=== PATIENT | male | born 1955 | race American Indian/Alaskan Native ===

== ENCOUNTER 2020-11-18 13:35 | Observation (INO) | payer MEDICARE, OTHER ==
--- NOTE | 2020-11-18 14:11 | Event Note ---
ED Screening Note Date of service: 11/18/20 Time: 14:09 ED Screening Note: 65-year-old male with a past medical history of coronary artery disease status post stent placement, COPD, hyperlipidemia, and hypertension presents to the ER today complaining of rectal bleeding and shortness of breath. Symptom onset was this morning. He describes bright red but also maroon-colored stool this morning. He states that he has had diarrhea but this has resolved 2 days ago. Reports decreased appetite and nausea. He denies vomiting. he denies any abdominal pain, or Chest pain. He is on Plavix and baby aspirin This initial assessment/diagnostic orders/clinical plan/treatment(s) is/are subject to change based on patients health status, clinical progression and re- assessment by fellow clinical providers in the ED. Further treatment and workup at subsequent clinical providers discretion. Patient/guardian urged not to elope from the ED as their condition may be serious if not clinically assessed and managed. Initial orders include: CBC, CMP, EKG, troponin, chest x-ray, Hemoccult
[2020-11-18 14:40] LABS: Eosinophils # (Auto) 0.1 K/mm3 (0.0-0.4); Eosinophils % (Auto) 0.8 % (0.0-4.3); Hematocrit 50.7 % (35.5-45.6); Hemoglobin 17.1 gm/dl (11.8-15.2); Lymphocytes # (Auto) 2.8 K/mm3 (1.2-5.4); Lymphocytes % (Auto) 43.7 % (13.4-35.0); Mean Corpuscular HGB Conc 34 % (32-34); Mean Corpuscular Volume 87 fl (84-94); Monocytes # (Auto) 0.6 K/mm3 (0.0-0.8); Monocytes % (Auto) 9.4 % (0.0-7.3); Platelet Count 235 K/mm3 (140-440); Red Blood Count 5.82 M/mm3 (3.65-5.03); Red Cell Distribution Width 16.7 % (13.2-15.2)
[2020-11-18 14:48] LABS: Alanine Aminotransferase 8 units/L (7-56); BUN/Creatinine Ratio 12; Blood Urea Nitrogen 16 mg/dL (9-20); Calcium 9.2 mg/dL (8.4-10.2); Hemolysis Index 9
--- NOTE | 2020-11-18 15:02 | XRay Report ---
CHEST PA AND LATERAL VIEWS INDICATION: SOB. COMPARISON: 08/15/2013 FINDINGS: Support devices: None Heart: Normal. Thoracic aorta is tortuous but appears normal in caliber. Lungs/Pleura: No acute pulmonary or pleural findings. IMPRESSION: 1. No acute disease. Signer Name: Don Gilmore MD Signed: 11/18/2020 2:58 PM Workstation Name: [id number]
--- NOTE | 2020-11-18 17:43 | Cat Scan Report ---
CTA ABDOMEN AND PELVIS WITH IV CONTRAST INDICATION / CLINICAL INFORMATION: gi bleed, hx of aorta repair. TECHNIQUE: Axial CT images were obtained through the abdomen and pelvis before and after after injection of 100 cc Omnipaque 350 IV contrast. 3 plane MIP / 3D reconstructions were produced. All CT scans at this [facility] are performed using CT dose reduction for ALARA by means of automated exposure control. Any pe rcent stenosis measurements are based on criteria similar to NASCET. COMPARISON: None available. FINDINGS: Aorta: There are postsurgical changes from repair of the lower abdominal aorta and proximal iliac art eries. No recurrent aneurysm identified. No evidence of vascular leakage. Renal arteries: Mild atherosclerotic plaque bilaterally without significant stenosis. Celiac artery: No significant abnormality. Superior Mesenteric Artery: No significant abnormality. Inferior mesenteric artery: No significant abnormality. Right Iliac Arteries: There is diffuse atherosclerotic plaque without significant stenosis. There is an aneurysm of the right internal iliac artery measuring 2.4 cm.. Left Iliac Arteries: There is diffuse atherosclerotic plaque without significant stenosis. There is a n aneurysm of the left common iliac artery measuring 2.0 cm.. Additional Findings: There is no appreciable active GI bleeding. There are multiple bilateral simple renal cysts. There is no bowel obstruction, free air, or pneumatosis. Skeletal Structures: No significant abnormality. IMPRESSION: 1. No appreciable active GI bleeding by CT. 2. Previous repair of the lower abdominal aorta without recurrent aneurysm or other acute aortic abno rmality. 3. Bilateral internal iliac artery aneurysms are present. Signer Name: Flavio Bello MD Signed: 11/18/2020 5:38 PM Workstation Name: [id number]
--- NOTE | 2020-11-18 17:53 | Emergency Department Report ---
ED GI Bleed HPI - General Chief complaint: GI Bleed Stated complaint: BLOOD IN STOOL Time Seen by Provider: 11/18/20 14:09 Source: patient Mode of arrival: Ambulatory Limitations: No Limitations - History of Present Illness Initial comments: 65-year-old male with a past medical history of throat cancer treated surgically in 1973 currently on remission, abdominal aortic aneurysm repair approximately 3 years ago at the [facility], CAD with stent placement, COPD, hypertension, kidney stones presents to the hospital complaining of dark maroon-colored stools since this a.m. Patient has had 2 maroon-colored bowel movements today. He currently takes aspirin and Plavix for CAD. He denies chest pain, abdominal pain, fever, history of previous GI bleed, nausea, or vomiting. Patient last had a colonoscopy 2 to 3 years ago and was supposed to reschedule due to unclear reason however, states they never called him for an appointment. Severity scale (0 -10): 3 - Related Data Home Medications Medication Instructions Recorded Confirmed Last Taken Aspirin [Adult Low Dose Aspirin EC] 81 mg PO QDAY 02/05/17 02/05/17 02/05/17 AtorvaSTATin [Lipitor] 1 tab PO QDAY 02/05/17 02/05/17 02/05/17 Budesoni/Formotero 160-4.5(Nf) 2 puff PO PRN 02/05/17 02/05/17 Unknown [Symbicort 160-4.5 (Nf)] Clopidogrel Bisulfate [Plavix] 75 mg PO QDAY 02/05/17 02/05/17 02/05/17 an ISOSORBIDE MONOnitrate [Imdur ER] 60 mg PO QAM 02/05/17 02/05/17 02/05/17 Metoprolol [Lopressor TAB] 25 mg PO BID 02/05/17 02/05/17 02/05/17 amLODIPine 5 mg PO QDAY 02/05/17 02/05/17 02/05/17 Previous Rx's Medication Instructions Recorded Last Taken Type Furosemide [Lasix TAB] 40 mg PO Q48H PRN #15 tablet 02/06/17 Unknown Rx Allergies Allergy/AdvReac Type Severity Reaction Status Date / Time No Known Allergies Allergy Unverified 02/05/17 15:35 ED Review of Systems ROS: Stated complaint: BLOOD IN STOOL Other details as noted in HPI Comment: All other systems reviewed and negative ED Past Medical Hx - Past Medical History Previous Medical History?: Yes Hx Hypertension: Yes Hx CVA: No Hx Heart Attack/AMI: Yes (CAD with stent placement) Hx Congestive Heart Failure: No Hx Diabetes: No Hx Deep Vein Thrombosis: No Hx Pulmonary Embolism: No Hx GERD: No Hx Liver Disease: No Hx of Cancer: Yes (Throat cancer treated surgically in 1973) Hx Sickle Cell Disease: No Hx Arthritis: No Hx Headaches / Migraines: No Hx Seizures: No Hx Kidney Stones: Yes Hx Psychiatric Treatment: No Hx Asthma: No Hx COPD: Yes Hx Tuberculosis: No Hx Dementia: No Hx HIV: No - Surgical History Past Surgical History?: Yes Hx Coronary Stent: Yes Hx Open Heart Surgery: No Hx Pacemaker: No Hx Internal Defibrillator: No Hx Cholecystectomy: No Hx Appendectomy: No Hx Breast Surgery: No Additional Surgical History: Abdominal aortic aneurysm repair approximately 2018 at the [facility] - Social History Smoking Status: Former Smoker Substance Use Type: None - Medications Home Medications: Home Medications Medication Instructions Recorded Confirmed Last Taken Type Aspirin [Adult Low Dose Aspirin EC] 81 mg PO QDAY 02/05/17 02/05/17 02/05/17 H istory AtorvaSTATin [Lipitor] 1 tab PO QDAY 02/05/17 02/05/17 02/05/17 History Budesoni/Formotero 160-4.5(Nf) 2 puff PO PRN 02/05/17 02/05/17 Unknown History [Symbicort 160-4.5 (Nf)] Clopidogrel Bisulfate [Plavix] 75 mg PO QDAY 02/05/17 02/05/17 02/05/17 History an ISOSORBIDE MONOnitrate [Imdur ER] 60 mg PO QAM 02/05/17 02/05/17 02/05/17 History Metoprolol [Lopressor TAB] 25 mg PO BID 02/05/17 02/05/17 02/05/17 History amLODIPine 5 mg PO QDAY 02/05/17 02/05/17 02/05/17 History Furosemide [Lasix TAB] 40 mg PO Q48H PRN #15 tablet 02/06/17 Unknown Rx ED Physical Exam - General Limitations: No Limitations - Other Other exam information: General: No acute distress Head: Atraumatic Eyes: normal appearance ENT: Moist mucous membranes Neck: Normal appearance, no midline tenderness Chest: Clear to auscultation bilaterally CV: Regular rate and rhythm Abdomen: Soft, normal bowel sounds, midline vertical surgical scar, nontender, nondistended, no rebound or guarding Rectal: Brown bloody stool guaiac positive Back: Normal inspection Extremity: Normal inspection, full range of motion Neuro: Alert O x 3, no facial asymmetry, speech clear, no gross motor sensory deficit Psych: Appropriate behavior Skin: No rash ED Course Vital Signs 11/18/20 11/18/20 11/18/20 14:08 16:55 16:56 Temperature 99.0 F Pulse Rate 57 L 63 Respiratory 20 14 14 Rate Blood Pressure 134/107 Blood Pressure 159/97 [Left] O2 Sat by Pulse 100 99 99 Oximetry - Consultations Consultation #1: 11/18/20 18:[address] Marcos [employer] vice president consulting services recommends admission for observation, repeat H&H, possible colonoscopy ED Medical Decision Making - Lab Data Result diagrams: 11/18/20 14:15 11/18/20 14:15 Lab Results 11/18/20 11/18/20 11/18/20 Range/Units 14:15 14:15 14:15 WBC 6.3 (4.5-11.0) K/mm3 RBC 5.82 H (3.65-5.03) M/mm3 Hgb 17.1 H (11.8-15.2) gm/dl Hct 50.7 H (35.5-45.6) % MCV 87 (84-94) fl MCH 29 (28-32) pg MCHC 34 (32-34) % RDW 16.7 H (13.2-15.2) % Plt Count 235 (140-440) K/mm3 Lymph % (Auto) 43.7 H (13.4-35.0) % [place] % (Auto) 9.4 H (0.0-7.3) % Eos % (Auto) 0.8 (0.0-4.3) % Baso % (Auto) [employer]led[employer] Operator Lymph # (Auto) 2.8 (1.2-5.4) K/mm3 [place] # (Auto) 0.6 (0.0-0.8) K/mm3 Eos # (Auto) 0.1 (0.0-0.4) K/mm3 Baso # (Auto) 0.0 (0.0-0.1) K/mm3 Seg Neutrophils % 45.6 (40.0-70.0) % Seg Neutrophils # 2.9 (1.8-7.7) K/mm3 Sodium 141 (137-145) mmol/L Potassium 4.0 (3.6-5.0) mmol/L Chloride 105.9 (98-107) mmol/L Carbon Dioxide 27 (22-30) mmol/L Anion Gap 12 mmol/L BUN 16 (9-20) mg/dL Creatinine 1.3 (0.8-1.3) mg/dL Estimated GFR > 60 ml/min BUN/Creatinine Ratio 12 % Glucose 119 H (75-100) mg/dL Calcium 9.2 (8.4-10.2) mg/dL Total Bilirubin 0.50 (0.1-1.2) mg/dL AST 12 (5-40) units/L ALT 8 (7-56) units/L Alkaline Phosphatase 92 (35-129) units/L Troponin T < 0.010 (0.00-0.029) ng/mL Total Protein 7.1 (6.3-8.2) g/dL Albumin 4.0 (3.9-5) g/dL Albumin/Globulin Ratio 1.3 % Lipase 66 H (13-60) units/L - EKG Data -: EKG Interpreted by Me (pvc'S) EKG shows normal: sinus rhythm, ST-T waves Rate: bradycardia (58) - Radiology Data Radiology results: report reviewed CTA ABDOMEN AND PELVIS WITH IV CONTRAST INDICATION / CLINICAL INFORMATION: gi bleed, hx of aorta repair. TECHNIQUE: Axial CT images were obtained through the abdomen and pelvis before and after a fter injection of 100 cc Omnipaque 350 IV contrast. 3 plane MIP / 3D reconstructions were produced. All CT scans at this location are performed using CT dose reduction for ALARA by means of automated exposure control. Any percent stenosis measurements are based on criteria similar to NASCET. COMPARISON: None available. FINDINGS: Aorta: There are postsurgical changes from repair of the lower abdominal aorta and proximal iliac arteries. No recurrent aneurysm identified. No evidence of vascular leakage. Renal arteries: Mild atherosclerotic plaque bilaterally without significant st enosis. Celiac artery: No significant abnormality. Superior Mesenteric Artery: No significant abnormality. Inferior mesenteric artery: No significant abnormality. Right Iliac Arteries: There is diffuse atherosclerotic plaque without significant stenosis. There is an aneurysm of the right internal iliac artery measuring 2.4 cm.. Left Iliac Arteries: There is diffuse atherosclerotic plaque without significant stenosis. There is an aneurysm of the left common iliac artery measuring 2.0 cm.. Additional Findings: There is no appreciable active GI bleeding. There are multiple bilateral simple renal cysts. There is no bowel obstruction, free air, or pneumatosis. Skeletal Structures: No significant abnormality. IMPRESSION: 1. No appreciable active GI bleeding by CT. 2. Previous repair of the lower abdominal aorta without recurrent aneurysm or other acute aortic abnormality. 3. Bilateral internal iliac artery aneurysms are present. CHEST PA AND LATERAL VIEWS INDICATION: SOB. COMPARISON: 08/15/2013 FINDINGS: Support devices: None Heart: Normal. Thoracic aorta is tortuous but appears normal in caliber. Lungs/Pleura: No acute pulmonary or pleural findings. IMPRESSION: 1. No acute disease. - Medical Decision Making 59 YO male presents to the hospital with new onset rectal bleeding times 1 day x 2 episodes. Guaiac positive bloody stools on rectal examination. Patient has a normal H&H without signs of cardial pulmonary instability in the ED. CT angiogram does not show any active bleeding or acute aortic aneurysm findings status post repair. Case discussed with on-call GI physician who recommends admission for observation and trending of H&H with possibility of colonoscopy as needed. Critical Care Time: No Critical care attestation.: If time is entered above; I have spent that time in minutes in the direct care of this critically ill patient, excluding procedure time. ED Disposition Clinical Impression: GI bleed, Antiplatelet or antithrombotic long-term use, Stented coronary artery, History of abdominal aortic aneurysm (AAA) repair Disposition: OP ADMIT IP TO THIS HOSP Is pt being admited?: Yes Condition: Stable Referrals: [facility] [Primary Care Provider] - 3-5 Days Time of Disposition: 18:02 (Dr FRANKEL/[facility])
[2020-11-18] MEDS ORDERED: ALBUTEROL 2.5 MG/3 ML NEBU IH PRN (18:02)
[2020-11-18] MEDS ORDERED: ONDANSETRON 4 MG/2 ML INJ IV PRN (18:02)
[2020-11-18] MEDS ORDERED: ACETAMINOPHEN 325 MG TAB PO PRN (18:02)
--- NOTE | 2020-11-18 18:02 | History and Physical Report ---
History of Present Illness Chief complaint: I have blood in my stool History of present illness: 65 YO Male with [place], HTN, HLD, CAD S/P Stent Placement on DAPT, COPD, Nephrolithiasis, Oralpharyngeal Cancer, AAA S/P Aneurysm Repair presents to ED for evaluation. Pt reports " I have blood in my stool". Pt states that he has experienced abdominal discomfort as well as two today dark stools. Pt transported to [facility] via private vehicle. Patient seen and evaluated in the emergency department. All lab and imaging studies reviewed. Patient found to be Hemoccult positive and found to have clinical symptoms consistent with GI bleed. Patient hemoglobin stable at this time of admission. No transfusion indicated at this time. Patient placed in observation status and admitted to medical floor. GI team consulted in ED. Patient initiated on IV PPI therapy. Patient denies fever, chills, chest pain, palpitation, productive cough, ingestion of food/water from new or different sources, recent ill contacts, or known exposure to COVID-19. Prior admission on 02/05/2017 reviewed. All medication listed at time of admiss ion has been reconciled. Advanced care planning conducted in ED. Past History Past Medical History: acute [place], CAD, cancer, COPD, hypertension, hyperlipidemia, other (See HPI) Past Surgical History: abd. aortic aneurysm repair, Other (Cardiac stent placement) Social history: single. denies: smoking, alcohol abuse, prescription drug abuse Family history: diabetes, hypertension Medications and Allergies Allergies Allergy/AdvReac Type Severity Reaction Status Date / Time No Known Allergies Allergy Unverified 02/05/17 15:35 Home Medications Medication Instructions Recorded Confirmed Last Taken Type Aspirin [Adult Low Dose Aspirin EC] 81 mg PO QDAY 02/05/17 02/05/17 02/05/17 History AtorvaSTATin [Lipitor] 1 tab PO QDAY 02/05/17 02/05/17 02/05/17 History Budesoni/Formotero 160-4.5(Nf) 2 puff PO PRN 02/05/17 02/05/17 Unknown History [Symbicort 160-4.5 (Nf)] Clopidogrel Bisulfate [Plavix] 75 mg PO QDAY 02/05/17 02/05/17 02/05/17 History an ISOSORBIDE MONOnitrate [Imdur ER] 60 mg PO QAM 05/09/1202/05/17 02/05/17 History Metoprolol [Lopressor TAB] 25 mg PO BID 02/05/17 02/05/17 02/05/17 History amLODIPine 5 mg PO QDAY 02/05/17 02/05/17 02/05/17 History Furosemide [Lasix TAB] 40 mg PO Q48H PRN #15 tablet 02/06/17 Unknown Rx Review of Systems Constitutional: no weight loss, no fever, no chills, no sweats, no weakness, no malaise Ears, nose, mouth and throat: no ear pain, no ear discharge, no tinnitis, no decreased hearing, no nasal congestion, no nasal discharge Cardiovascular: no chest pain, no orthopnea, no rapid/irregular heart beat, no edema, no lightheadedness Respiratory: no cough, no excessive sputum, no hemoptysis, no dyspnea on exertion Gastrointestinal: BRBPR, no abdominal pain, no nausea, no vomiting, no loss of appetite Genitourinary Male: no hematuria, no flank pain, no discharge, no urinary frequency, no urinary hesitancy Rectal: no pain, no incontinence, no bleeding Musculoskeletal: no neck stiffness, no neck pain, no shooting arm pain, no arm numbness/tingling, no low back pain Integumentary: no rash, no pruritis, no redness, no sores, no wounds Neurological: no head injury, no transient paralysis, no paralysis, no weakness, no parathesias, no numbness, no tingling Psychiatric: no anxiety, no memory loss, no sleep disturbances, no insomnia, no hypersomnia, no change in appetite, no suicidal ideation, no disorientation Endocrine: no cold intolerance, no polyuria, no nocturia, no excessive sweating, no flushing Hematologic/Lymphatic: no easy bruising, no easy bleeding Allergic/Immunologic: no urticaria, no allergic rhinitis, no wheezing Exam - Constitutional Vitals: Temp Pulse Resp BP Pulse Ox 99.0 F 63 14 159/97 99 11/18/20 14:08 11/18/20 16:55 11/18/20 16:56 11/18/20 16:55 11/18/20 16:56 General appearance: Present: mild distress - EENT Eyes: Present: PERRL ENT: hearing intact, clear oral mucosa - Neck Neck: Present: supple, normal ROM - Respiratory Respiratory effort: normal Respiratory: bilateral: CTA - Cardiovascular Heart Sounds: Present: S1 & S2. Absent: rub, click - Extremities Extremities: pulses symmetrical, No edema Peripheral Pulses: within normal limits - Abdominal General gastrointestinal: Present: soft, non-tender, non-distended, normal bowel sounds Male genitourinary: Present: normal - Integumentary Integumentary: Present: clear, warm, dry - Musculoskeletal Musculoskeletal: gait normal, strength equal bilaterally - Psychiatric Psychiatric: appropriate mood/affect, intact judgment & insight - Neurologic Neurologic: CNII-XII intact, moves all extremities HEART Score - HEART Score Troponin: Troponin T < 0.010 ng/mL (0.00-0.029) 11/18/20 14:15 Results - Labs CBC & Chem 7: 11/18/20 14:15 11/18/20 14:15 Labs: Abnormal lab results 11/18/20 11/18/20 11/18/20 Range/Units 14:15 14:15 14:15 RBC 5.82 H (3.65-5.03) M/mm3 Hgb 17.1 H (11.8-15.2) gm/dl Hct 50.7 H (35.5-45.6) % RDW 16.7 H (13.2-15.2) % Lymph % (Auto) 43.7 H (13.4-35.0) % [place] % (Auto) 9.4 H (0.0-7.3) % Glucose 119 H (75-100) mg/dL Lipase 66 H (13-60) units/L Assessment and Plan - Patient Problems (1) GI bleed Current Visit: Yes Status: Acute Plan to address problem: CBC, IV PPI therapy, GI team consulted in ED. Further care and evaluation as per GI team. (2) Hypertension Current Visit: Yes Status: Acute Qualifiers: Hypertension type: essential hypertension Qualified Code(s): I10 - Essential (primary) hypertension Plan to address problem: Monitor blood pressure every shift, continue medical management. (3) Hyperlipidemia Current Visit: Yes Status: Acute Qualifiers: Hyperlipidemia type: mixed hyperlipidemia Qualified Code(s): E78.2 - Mixed hyperlipidemia Plan to address problem: Lipid panel, statin therapy, supportive care. Low-cholesterol diet. (4) History of abdominal aortic aneurysm (AAA) repair Current Visit: Yes Status: Acute Plan to address problem: Supportive care, continue medical management. (5) CAD (coronary artery disease) Current Visit: No Status: Acute Qualifiers: Associated angina: without angina Plan to address problem: Antiplatelet therapy, supportive care, continue medical management, risk factor reduction. (6) DVT prophylaxis Current Visit: Yes Status: Acute Plan to address problem: SCD to bilateral lower extremities while in bed, patient is ambulatory. (7) Advance care planning Current Visit: Yes Status: Acute Plan to address problem: Disease education conducted, care plan discussed, prognosis discussed, diagnosis discussed, patient knowledges understanding and agreement with care plan, +30 mi nutes.
[2020-11-18] MEDS ORDERED: FUROSEMIDE 40 MG TAB PO PRN (18:03)
[2020-11-18] MEDS ORDERED: NON-FORMULARY EACH (Budesoni/Formotero 160-4.5(Nf) 10.2 GM Inha) PO SCH (18:15)
[2020-11-18] MEDS: ARFORMOTEROL 15 MCG/2 ML NEBU IH SCH (22:07)
[2020-11-18] MEDS: BUDESONIDE 0.5 MG/2 ML NEBU IH SCH (22:08)
[2020-11-18] MEDS: PANTOPRAZOLE 40 MG INJ IV SCH (22:49)
[2020-11-18] MEDS: METOPROLOL TARTRATE 25 MG TAB PO SCH (22:49)
[2020-11-19 07:30] LABS: Basophils % (Auto) 0.3 % (0.0-1.8); Eosinophils # (Auto) 0.1 K/mm3 (0.0-0.4); Eosinophils % (Auto) 1.1 % (0.0-4.3); Hematocrit 48.2 % (35.5-45.6); Hemoglobin 16.4 gm/dl (11.8-15.2); Lymphocytes # (Auto) 2.4 K/mm3 (1.2-5.4); Lymphocytes % (Auto) 38.3 % (13.4-35.0); Mean Corpuscular HGB Conc 34 % (32-34); Mean Corpuscular Volume 87 fl (84-94); Monocytes # (Auto) 0.6 K/mm3 (0.0-0.8); Monocytes % (Auto) 10.1 % (0.0-7.3); Platelet Count 206 K/mm3 (140-440); Red Blood Count 5.52 M/mm3 (3.65-5.03); Red Cell Distribution Width 16.3 % (13.2-15.2)
[2020-11-19 08:17] LABS: BUN/Creatinine Ratio 11; Blood Urea Nitrogen 12 mg/dL (9-20); Hemolysis Index 4
--- NOTE | 2020-11-19 09:08 | Progress Note ---
Assessment and Plan Assessment and plan: (1) GI bleed Current Visit: Yes Status: Acute Plan to address problem: CBC, IV PPI therapy, GI team consulted in ED. Further care and evaluation as per GI team. (2) Hypertension Current Visit: Yes Status: Acute Qualifiers: Hypertension type: essential hypertension Qualified Code(s): I10 - Essential (primary) hypertension Plan to address problem: Monitor blood pressure every shift, continue medical management. (3) Hyperlipidemia Current Visit: Yes Status: Acute Qualifiers: Hyperlipidemia type: mixed hyperlipidemia Qualified Code(s): E78.2 - Mixed hyperlipidemia Plan to address problem: Lipid panel, statin therapy, supportive care. Low-cholesterol diet. (4) History of abdominal aortic aneurysm (AAA) repair Current Visit: Yes Status: Acute Plan to address problem: Supportive care, continue medical management. (5) CAD (coronary artery disease) Current Visit: No Status: Acute Qualifiers: Associated angina: without angina Plan to address problem: Antiplatelet therapy, supportive care, continue medical management, risk factor reduction. (6) DVT prophylaxis Current Visit: Yes Status: Acute Plan to address problem: SCD to bilateral lower extremities while in bed, patient is ambulatory. (7) Advance care planning Current Visit: Yes Status: Acute Plan to address problem: Disease education conducted, care plan discussed, prognosis discussed, diagnosis discussed, patient knowledges understanding and agreement with care plan, +30 minutes. 11/19/2020 -Patient's H&H is stable -We will follow GI recommendation History Interval history: Patient was seen and evaluated this morning Hospitalist Physical - Physical exam Narrative exam: Not in cardiopulmonary distress. The patient appeared well nourished and normally developed. Vital signs as documented. Head exam is unremarkable. No scleral icterus . Neck is without jugular venous distension, thyromegaly, or carotid bruits. Lungs are clear to auscultation. Cardiac exam reveals regular rate and Rhythm. Abdominal exam reveals normal bowel sounds, nontender, no organomegaly. Extremities are nonedematous and both femoral and pedal pulses are normal. 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 No focal weakness. - Constitutional Vitals: Temp Pulse Resp BP Pulse Ox 98.5 F 55 L 14 142/96 95 11/19/20 03:07 11/19/20 03:07 11/19/20 03:07 11/19/20 03:07 11/19/20 03:07 General appearance: Present: mild distress HEART Score - HEART Score Troponin: Troponin T < 0.010 ng/mL (0.00-0.029) 11/18/20 14:15 Results - Labs CBC & Chem 7: 11/19/20 07:07 11/19/20 07:07 Labs: Laboratory Last Values WBC 6.4 K/mm3 (4.5-11.0) 11/19/20 07:07 RBC 5.52 M/mm3 (3.65-5.03) H 11/19/20 07:07 Hgb 16.4 gm/dl (11.8-15.2) H 11/19/20 07:07 Hct 48.2 % (35.5-45.6) H 11/19/20 07:07 MCV 87 fl (84-94) 11/19/20 07:07 MCH 30 pg (28-32) 11/19/20 07:07 MCHC 34 % (32-34) 11/19/20 07:07 RDW 16.3 % (13.2-15.2) H 11/19/20 07:07 Plt Count 206 K/mm3 (140-440) 11/19/20 07:07 Lymph % (Auto) 38.3 % (13.4-35.0) H 11/19/20 07:07 [place] % (Auto) 10.1 % (0.0-7.3) H 11/19/20 07:07 Eos % (Auto) 1.1 % (0.0-4.3) 11/19/20 07:07 Baso % (Auto) 0.3 % (0.0-1.8) 11/19/20 07:07 Lymph # (Auto) 2.4 K/mm3 (1.2-5.4) 11/19/20 07:07 [place] # (Auto) 0.6 K/mm3 (0.0-0.8) 11/19/20 07:07 Eos # (Auto) 0.1 K/mm3 (0.0-0.4) 11/19/20 07:07 Baso # (Auto) 0.0 K/mm3 (0.0-0.1) 11/19/20 07:07 Seg Neutrophils % 50.2 % (40.0-70.0) 11/19/20 07:07 Seg Neutrophils # 3.2 K/mm3 (1.8-7.7) 11/19/20 07:07 Sodium 140 mmol/L (137-145) 11/19/20 07:07 Potassium 3.5 mmol/L (3.6-5.0) L 11/19/20 07:07 Chloride 103.8 mmol/L (98-107) 11/19/20 07:07 Carbon Dioxide 31 mmol/L (22-30) H 11/19/20 07:07 Anion Gap 9 mmol/L 11/19/20 07:07 BUN 12 mg/dL (9-20) 11/19/20 07:07 Creatinine 1.1 mg/dL (0.8-1.3) 11/19/20 07:07 Estimated GFR > 60 ml/min 11/19/20 07:07 BUN/Creatinine Ratio 11 % 11/19/20 07:07 Glucose 114 mg/dL (75-100) H 11/19/20 07:07 Calcium 9.0 mg/dL (8.4-10.2) 11/19/20 07:07 Total Bilirubin 0.50 mg/dL (0.1-1.2) 11/18/20 14:15 AST 12 units/L (5-40) 11/18/20 14:15 ALT 8 units/L (7-56) 11/18/20 14:15 Alkaline Phosphatase 92 units/L (35-129) 11/18/20 14:15 Troponin T < 0.010 ng/mL (0.00-0.029) 11/18/20 14:15 Total Protein 7.1 g/dL (6.3-8.2) 11/18/20 14:15 Albumin 4.0 g/dL (3.9-5) 11/18/20 14:15 Albumin/Globulin Ratio 1.3 % 11/18/20 14:15 Lipase 66 units/L (13-60) H 11/18/20 14:15 Microbiology: Microbiology 11/18/20 16:38 Stool Stool Occult Blood (DANIELLE) - Final Carter/IV: Voiding Method Toilet Active Medications - Current Medications Current Medications: Generic Name Dose Route Start Last Admin Trade Name Freq PRN Reason Stop Dose Admin Acetaminophen 650 mg 11/18/20 18:02 11/18/20 22:49 Acetaminophen 325 Mg Tab PO 650 mg Q4H PRN Administration Pain MILD(1-3)/Fever >100.5/NEWSOME Albuterol 2.5 mg 11/18/20 18:02 Albuterol 2.5 Mg/3 Ml Nebu IH Q4HRT PRN Shortness Of Breath Amlodipine Besylate 5 mg 11/19/20 10:00 Amlodipine 5 Mg Tab PO QDAY CARLITOS Arformoterol Tartrate 15 mcg 11/18/20 20:00 11/18/20 22:07 Arformoterol 15 Mcg/2 Ml Nebu IH 15 mcg Q12HRT CARLITOS Administration Atorvastatin Calcium 40 mg 11/18/20 22:00 11/18/20 22:49 Atorvastatin 40 Mg Tab PO 40 mg HS CARLITOS Administration Budesonide 1 mg 11/18/20 20:00 11/18/20 22:08 Budesonide 0.5 Mg/2 Ml Nebu IH 1 mg Q12HRT CARLITOS Administration Furosemide 40 mg 11/18/20 18:03 Furosemide 40 Mg Tab PO Q48H PRN weight gain or Leg swelling Isosorbide Mononitrate 60 mg 11/19/20 10:00 Isosorbide Mononitrate Er 60 Mg Tab PO QAM CARLITOS Metoprolol Tartrate 25 mg 11/18/20 22:00 11/18/20 22:49 Metoprolol Tartrate 25 Mg Tab PO 25 mg BID CARLITOS Administration Ondansetron HCl 4 mg 11/18/20 18:02 11/19/20 04:58 Ondansetron 4 Mg/2 Ml Inj IV 4 mg Q8H PRN Administration Nausea And Vomiting Pantoprazole Sodium 40 mg 11/18/20 22:00 11/18/20 22:49 Pantoprazole 40 Mg Inj IV 40 mg BID CARLITOS Administration Sodium Chloride 10 ml 11/18/20 22:00 11/18/20 22:50 Sodium Chloride 0.9% 10 Ml Flush Syringe IV 10 ml BID CARLITOS Administration Sodium Chloride 10 ml 11/18/20 18:02 Sodium Chloride 0.9% 10 Ml Flush Syringe IV PRN PRN LINE FLUSH
[2020-11-19] MEDS: BUDESONIDE 0.5 MG/2 ML NEBU IH SCH (09:33)
[2020-11-19] MEDS: ARFORMOTEROL 15 MCG/2 ML NEBU IH SCH (09:33)
[2020-11-19 09:44] VITALS: BP 134/96
[2020-11-19] MEDS: METOPROLOL TARTRATE 25 MG TAB PO SCH (09:49)
[2020-11-19] MEDS: PANTOPRAZOLE 40 MG INJ IV SCH (09:51)
[2020-11-19] MEDS ORDERED: amLODIPine 5 MG TAB PO SCH (10:00)
--- NOTE | 2020-11-19 11:30 | Gastroenterology Consultation ---
History of Present Illness - Reason for Consult Consult date: 11/19/20 hematochezia Requesting physician: TEJ BARKER - History of Present Illness The patient is a 65 yo aam who presents with hematochezia x 1 day. Patient receives his care from the [facility]. h/o "throat cancer" with prior surgery (no chemo/radiation per pt), lower aortic aneurysm repair per chart review, who presents with brbpr. had one episode with blood in the camode yesterday morning and then in the ER yesterday with wipes. Had a brown bm after admission (small amount this morning). denies abd pain, hematemesis, melena, weight loss, bowel habit changes/constipation. reports having colonoscopy 2-3 years ago at [facility] and states he was not cleaned out well enough but otherwise does not recall significant findings. H/H normal, CTA negative for active bleeding, requesting to eat. Past History Past Medical History: acute [place], CAD, cancer, COPD, hypertension, hyperlipidemia, other (See HPI) Past Surgical History: abd. aortic aneurysm repair, Other (Cardiac stent placement) Social history: single. denies: smoking, alcohol abuse, prescription drug abuse Family history: diabetes, hypertension Medications and Allergies Allergies Allergy/AdvReac Type Severity Reaction Status Date / Time No Known Allergies Allergy Unverified 02/05/17 15:35 Home Medications Medication Instructions Recorded Confirmed Last Taken Type Aspirin [Adult Low Dose Aspirin EC] 81 mg PO QDAY 02/05/17 02/05/17 02/05/17 History AtorvaSTATin [Lipitor] 1 tab PO QDAY 02/05/17 02/05/17 02/05/17 History Budesoni/Formotero 160-4.5(Nf) 2 puff PO PRN 02/05/17 02/05/17 Unknown History [Symbicort 160-4.5 (Nf)] Clopidogrel Bisulfate [Plavix] 75 mg PO QDAY 02/05/17 02/05/17 02/05/17 History an ISOSORBIDE MONOnitrate [Imdur ER] 60 mg PO QAM 02/05/17 02/05/17 02/05/17 History Metoprolol [Lopressor TAB] 25 mg PO BID 02/05/17 02/05/17 02/05/17 History amLODIPine 5 mg PO QDAY 0502/05/17 02/05/17 History Furosemide [Lasix TAB] 40 mg PO Q48H PRN #15 tablet 02/06/17 Unknown Rx Active Meds: Active Medications Acetaminophen (Acetaminophen 325 Mg Tab) 650 mg PO Q4H PRN PRN Reason: Pain MILD(1-3)/Fever >100.5/NEWSOME Last Admin: 11/18/20 22:49 Dose: 650 mg Documented by: Albuterol (Albuterol 2.5 Mg/3 Ml Nebu) 2.5 mg IH Q4HRT PRN PRN Reason: Shortness Of Breath Amlodipine Besylate (Amlodipine 5 Mg Tab) 5 mg PO QDAY [facility] Last Admin: 11/19/20 09:51 Dose: 5 mg Documented by: Arformoterol Tartrate (Arformoterol 15 Mcg/2 Ml Nebu) 15 mcg IH Q12HRT [facility] Last Admin: 11/19/20 09:33 Dose: 15 mcg Documented by: Atorvastatin Calcium (Atorvastatin 40 Mg Tab) 40 mg PO HS [facility] Last Admin: 11/18/20 22:49 Dose: 40 mg Documented by: Budesonide (Budesonide 0.5 Mg/2 Ml Nebu) 1 mg IH Q12HRT [facility] Last Admin: 11/19/20 09:33 Dose: 1 mg Documented by: Furosemide (Furosemide 40 Mg Tab) 40 mg PO Q48H PRN PRN Reason: weight gain or Leg swelling Isosorbide Mononitrate (Isosorbide Mononitrate Er 60 Mg Tab) 60 mg PO QAM [facility] Last Admin: 11/19/20 09:49 Dose: Not Given Documented by: Metoprolol Tartrate (Metoprolol Tartrate 25 Mg Tab) 25 mg PO BID [facility] Last Admin: 11/19/20 09:49 Dose: Not Given Documented by: Ondansetron HCl (Ondansetron 4 Mg/2 Ml Inj) 4 mg IV Q8H PRN PRN Reason: Nausea And Vomiting Last Admin: 11/19/20 04:58 Dose: 4 mg Documented by: Pantoprazole Sodium (Pantoprazole 40 Mg Inj) 40 mg IV BID [facility] Last Admin: 11/19/20 09:51 Dose: 40 mg Documented by: Sodium Chloride (Sodium Chloride 0.9% 10 Ml Flush Syringe) 10 ml IV BID [facility] Last Admin: 11/18/20 22:50 Dose: 10 ml Documented by: Sodium Chloride (Sodium Chloride 0.9% 10 Ml Flush Syringe) 10 ml IV PRN PRN PRN Reason: LINE FLUSH Reviewed/updated patient's home and current medications Review of Systems - Review of Systems All systems: negative (per HPI) Exam - Constitutional Vital Signs: Temp Pulse Resp BP Pulse Ox 98.0 F 56 L 18 134/96 98 11/19/20 08:53 11/19/20 09:49 11/19/20 09:35 11/19/20 08:53 11/19/20 09:35 General appearance: no acute distress - EENT Eyes: PERRL, EOM intact - Neck Neck: other (+ surgical scar) - Respiratory Respiratory effort: normal Respiratory: bilateral: CTA - Cardiovascular Rhythm: regular Heart Sounds: Present: S1 & S2 - Gastrointestinal General gastrointestinal: Present: soft, non-tender, non-distended Rectal Exam: stool brown - Integumentary Integumentary: Present: clear, warm - Neurologic Neurological: alert and oriented x3 - Psychiatric Psychiatric: appropriate mood/affect - Labs CBC & Chem 7: 11/19/20 07:07 11/19/20 07:07 Lab Results: Laboratory Results - last 24 hr 11/18/20 11/18/20 11/18/20 14:15 14:15 14:15 WBC 6.3 RBC 5.82 H Hgb 17.1 H Hct 50.7 H MCV 87 MCH 29 MCHC 34 RDW 16.7 H Plt Count 235 Lymph % (Auto) 43.7 H [place] % (Auto) 9.4 H Eos % (Auto) 0.8 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1 Baso % (Auto) 0.3 Lymph # (Auto) 2.4 [place] # (Auto) 0.6 Eos # (Auto) 0.1 Baso # (Auto) 0.0 Seg Neutrophils % 50.2 Seg Neutrophils # 3.2 Sodium 140 Potassium 3.5 L Chloride 103.8 Carbon Dioxide 31 H Anion Gap 9 BUN 12 Creatinine 1.1 Estimated GFR > 60 BUN/Creatinine Ratio 11 Glucose 114 H Calcium 9.0 Total Bilirubin AST ALT Alkaline Phosphatase Troponin T Total Protein Albumin Albumin/Globulin Ratio Lipase - Imaging CT Scan: report reviewed Assessment and Plan hematochezia - appears resolved, brown stool on rectal exam, H/H stable/remains in normal range and cta neg for bleeding. most likely outlet/anorectal source. no other gi symptoms. okay to be discharged from gi stand point, pt instructed to f/u with primary [facility] in 1-2 weeks, and return to hospital for worsening bleed or other new changes/symptoms.
--- NOTE | 2020-11-19 11:49 | Discharge Summary ---
Providers - Providers Date of Admission: 11/18/20 18:02 Date of discharge: 11/19/20 Attending physician: TEJ BARKER MD 11/18/20 18:04 Consult to Physician [CONS] Urgent Comment: Consulting Provider: RENE TREVIÑO Physician Instructions: Reason For Exam: GI BLEED Primary care physician: [facility] Hospitalization Reason for admission: GI bleed Condition: Stable Pertinent studies: CTA abdomen and pelvis negative for acute bleeding Hospital course: History of present illness: 65 YO Male with [place], HTN, HLD, CAD S/P Stent Placement on DAPT, COPD, Nephrolithiasis, Oralpharyngeal Cancer, AAA S/P Aneurysm Repair presents to ED for evaluation. Pt reports " I have blood in my stool". Pt states that he has experienced abdominal discomfort as well as two today dark stools. Pt transported to [facility] via private vehicle. Patient seen and evaluated in the emergency department. All lab and imaging studies reviewed. Patient found to be Hemoccult positive and found to have clinical symptoms consistent with GI bleed. Patient hemoglobin stable at this time of admission. No transfusion indicated at this time. Patient placed in observation status and admitted to medical floor. GI team consulted in ED. Patient initiated on IV PPI therapy. Patient denies fever, chills, chest pain, palpitation, productive cough, ingestion of food/water from new or different sources, recent ill contacts, or known exposure to COVID-19. Prior admission on 02/05/2017 reviewed. All medication listed at time of admission has been reconciled. Advanced care planning conducted in ED. Hospital course Patient was admitted to the floor and CT was done and negative for active bleeding. H&H was stable. Patient has brown bowel movement after admission. Patient does not have further GI bleed. Patient was evaluated by GI and the source is likely are no rectal and recommend no further work-up and cleared him for discharge. Patient is followed at [facility] and advised to have follow-up there. Disposition: - TO HOME OR SELFCARE Time spent for discharge: 32-minutes - Discharge Diagnoses (1) GI bleed Status: Acute (2) History of abdominal aortic aneurysm (AAA) repair Status: Acute (3) Hyperlipidemia Status: Acute Qualifiers: Hyperlipidemia type: mixed hyperlipidemia Qualified Code(s): E78.2 - Mixed hyperlipidemia (4) Hypertension Status: Acute Qualifiers: Hypertension type: essential hypertension Qualified Code(s): I10 - Essential (primary) hypertension (5) Stented coronary artery Status: Acute Core Measure Documentation - Palliative Care Palliative Care/ Comfort Measures: Not Applicable - Core Measures Any of the following diagnoses?: none Exam - Physical Exam Narrative exam: Not in cardiopulmonary distress. The patient appeared well nourished and normally developed. Vital signs as documented. Head exam is unremarkable. No scleral icterus . Neck is without jugular venous distension, thyromegaly, or carotid bruits. Lungs are clear to auscultation. Cardiac exam reveals regular rate and Rhythm. Abdominal exam reveals normal bowel sounds, nontender, no organomegaly. Extremities are nonedematous and both femoral and pedal pulses are normal. 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 No focal weakness. - Constitutional Vitals: Temp Pulse Resp BP Pulse Ox 98.0 F 56 L 18 134/96 98 11/19/20 08:53 11/19/20 09:49 11/19/20 09:35 11/19/20 08:53 11/19/20 09:35 Plan Activity: no restrictions Weight Bearing Status: Full Weight Bearing Diet: low cholesterol, low salt Follow up with: [facility] [Primary Care Provider] - 3-5 Days Prescriptions: Omeprazole 20 mg PO QAM #30 tablet.
== END 2020-11-19 13:03 | disposition home or self-care (01) ==
LOC: ED 13:35 → 4A 18:02
PROVIDERS: ADMIT Internal Medicine; ATTEND Internal Medicine
DX: K92.2 Gastrointestinal hemorrhage, unspecified (principal); I10 Essential (primary) hypertension; E78.5 Hyperlipidemia, unspecified; I25.10 Atherosclerotic heart disease of native coronary artery without angina pectoris; I71.4 Abdominal aortic aneurysm, without rupture; J44.9 Chronic obstructive pulmonary disease, unspecified; I25.2 Old myocardial infarction; Z98.890 Other specified postprocedural states; Z79.899 Other long term (current) drug therapy; Z79.82 Long term (current) use of aspirin; Z79.01 Long term (current) use of anticoagulants; Z87.442 Personal history of urinary calculi; Z85.89 Personal history of malignant neoplasm of other organs and systems; Z95.1 Presence of aortocoronary bypass graft; Z87.891 Personal history of nicotine dependence
CPT/HCPCS: 36415; 71046; 74174; 80048; 80053; 82271; 83690; 84484; 85025; 93005; 94640; 96374; 96375; 96376; 99285; A9270; C9113; G0378; J2405; Q9967